=== PATIENT | female | born 1955 | race Two or more races ===

== ENCOUNTER 2024-03-31 11:32 | Day surgery (SDC) | payer OTHER ==
[2024-03-28 12:13] VITALS: BP 160/80
[~2024-03-31] VITALS: Ht 157.5 cm; Wt 101.6 kg
[~2024-03-31 11:32] MED LIST: ATORVASTATIN CA20 MG PO; GLIMEPIRIDE2 M1 PO; GLUMETZA500 MG PO; IRBESARTAN150 MG PO; MONTELUKAST SOD10 MG PO; SYNTHROID125 MCG PO
[2024-03-31] MEDS ORDERED: POVIDONE-IODINE 118 ML BOTT TOP ONE (18:00)
[2024-03-31] MEDS ORDERED: CEFAZOLIN SODIUM 1,000 MG VIAL IV ONE (18:00)
[2024-03-31] MEDS ORDERED: RINGERS SOLUTION,LACTATED 1,000 ML IV SCH (18:15)
[2024-03-31] MEDS ORDERED: ZITHROMAX500 MG PO (18:20)
[2024-03-31] MEDS ORDERED: IBU400 MG PO (18:20)
[2024-03-31] MEDS ORDERED: ALBUTEROL SULFATE 3 ML/2.5 MG AMPUL.NEB IH ONE (18:30)
== END 2024-03-31 22:55 | disposition home or self-care (01) ==
LOC: CIR.AMB 11:32
PROVIDERS: ATTEND Obstetrics & Gynecology
DX: N84.0 Polyp of corpus uteri (principal); J45.909 Unspecified asthma, uncomplicated; E11.9 Type 2 diabetes mellitus without complications